=== PATIENT | female | born 1995 | race Caucasian/White ===

== ENCOUNTER 2017-08-28 16:58 | Outpatient (CLI) | payer OTHER | END 2017-08-28 18:08 | disposition home or self-care (01) | LOC: OBT 16:58 → L-D 17:00 → OBT 18:08 | DX: O36.8130 Decreased fetal movements, third trimester, not applicable or unspecified (principal); Z3A.38 38 weeks gestation of pregnancy | CPT/HCPCS: 76818 ==

== ENCOUNTER 2017-08-30 17:59 | Inpatient (IN) | payer OTHER ==
[~2017-08-30 17:59] MED LIST: DIPHENHYDRAMINE 50 MG INJ IV; KETOROLAC 30 MG INJ IV; NALOXONE (0.4 MG/ML) INJ IV; ONDANSETRON 4 MG INJ IV; ZOLPIDEM 5 MG TAB PO; morphine 2 MG INJ IV; morphine 4 MG/ML VIAL IV
[2017-08-30] MEDS ORDERED: LACTATED RINGER'S 1,000 ML IV (20:52)
[2017-08-30] MEDS ORDERED: CA GLUCONATE (GM) 10% 10ML INJ IV (21:00)
[2017-08-30] MEDS ORDERED: CARBOPROST 250 MCG INJ IM (21:00)
[2017-08-30] MEDS ORDERED: LIDOCAINE 1% (MPF) 30 ML INJ INJ (21:00)
[2017-08-30] MEDS ORDERED: OXYTOCIN 30 UNITS/LR 500 ML IV ×2 (21:00)
[2017-08-30] MEDS ORDERED: OXYCODONE/ASPIRIN (4.88/325) TAB PO (21:00)
[2017-08-30] MEDS ORDERED: METHYLERGONOVINE 0.2 MG INJ IM (21:00)
[2017-08-30] MEDS ORDERED: MISOPROSTOL 200 MCG TAB PR (21:00)
[2017-08-30] MEDS ORDERED: IBUPROFEN 600 MG TAB PO (21:00)
[2017-08-30] MEDS: LACTATED RINGER'S 1,000 ML IV (21:22)
[2017-08-30] MEDS: MAGNESIUM SULFATE 4 GM/100 ML 100 ML IV (21:31)
[2017-08-30 21:56] LABS: ADD MAN DIFF? NO
[2017-08-30 22:01] LABS: WHITE BLOOD COUNT 8.6 10^3/ul (4.8-10.8)
[2017-08-30 22:01] LABS: BASOPHILS % 0.2 % (0.0-2.0); EOSINOPHILS # 0.1 10^3/ul (0.0-0.5); EOSINOPHILS % 1.3 % (0.0-7.0); HEMATOCRIT 33.8 % (37.0-47.0); LYMPHOCYTES # 2.8 10^3/ul (0.8-2.9); LYMPHOCYTES % 32.6 % (15.0-51.0); MEAN CORPUSCULAR HEMOGLOBIN 27.2 pg (29.0-33.0); MEAN CORPUSCULAR HGB CONC 32.5 g/dl (32.0-37.0); MEAN CORPUSCULAR VOLUME 83.7 fl (82.0-101.0); MEAN PLATELET VOLUME 11.3 fl (7.4-10.4); MONOCYTE # 0.6 10^3/ul (0.3-0.9); NEUTROPHILS % 58.4 % (39.0-77.0); PLATELET COUNT 201 10^3/UL (140-415); RED BLOOD COUNT 4.04 10^6/ul (4.20-5.40); RED CELL DISTRIBUTION WIDTH 14.8 % (11.5-14.5)
[2017-08-30 22:08] LABS: ADD UMIC YES; UR AMORPHOUS CRYSTAL FEW /HPF (NONE SEEN); UR ASCORBIC ACID NEGATIVE (NEGATIVE); UR BACTERIA FEW /HPF (NONE SEEN); UR BILIRUBIN (Dip) NEGATIVE (NEGATIVE); UR BLOOD (Dip) 1+ mg/dL (NEGATIVE); UR CLARITY CLEAR (CLEAR); UR COLOR STRAW (YELLOW); UR GLUCOSE (Dip) NEGATIVE (NEGATIVE); UR KETONES (Dip) NEGATIVE (NEGATIVE); UR LEUKOCYTE ESTERASE (Dip) 3+ Leu/ul (NEGATIVE); UR NITRITE (Dip) NEGATIVE (NEGATIVE); UR RBC 10 /HPF (0-5); UR SPECIFIC GRAVITY (Dip) 1.005 (1.003-1.030); UR SQUAMOUS EPITHELIAL CELL FEW /HPF (FEW); UR TOTAL PROTEIN (Dip) NEGATIVE (NEGATIVE); UR UROBILINOGEN (Dip) NEGATIVE (NEGATIVE); UR WBC 29 /HPF (0-5)
[2017-08-30] MEDS: MAGNESIUM SULFATE 20 GM/500 ML 500 ML IV (22:09)
[2017-08-30] MEDS: ACETAMINOPHEN 500 MG TAB PO (22:10)
[2017-08-30 22:24] LABS: ALANINE AMINOTRANSFERASE 19 IU/L (13-69); ALBUMIN 3.5 g/dl (3.3-4.9); ALBUMIN/GLOBULIN RATIO 1.02; ALKALINE PHOSPHATASE 159 IU/L (42-121); ANION GAP 13 (8-16); ASPARTATE AMINO TRANSFERASE 18 IU/L (15-46); BLOOD UREA NITROGEN 11 mg/dl (7-20); CALCIUM 8.4 mg/dl (8.4-10.2); CARBON DIOXIDE 23 mmol/L (21-31); CHLORIDE 107 mmol/L (97-110); GLUCOSE 93 mg/dl (70-220); POTASSIUM 4.1 mmol/L (3.5-5.1); SODIUM 139 mmol/L (135-144); TOTAL PROTEIN 6.9 g/dl (6.1-8.1)
[2017-08-30 22:30] LABS: INR 0.92; PROTIME 12.4 Sec (11.9-14.9)
[2017-08-30 23:06] LABS: PARTIAL THROMBOPLASTIN TIME 26.7 Sec (25.0-35.0)
[2017-08-30] MEDS: AMPICILLIN 2 GM/NS (PMX) 100 ML IVPB (23:10)
[2017-08-31] MEDS ORDERED: LABETALOL HCL 20MG INJ (00:10)
[2017-08-31] MEDS: LABETALOL HCL 20MG INJ IV (00:15)
[2017-08-31] MEDS ORDERED: LABETALOL HCL 20MG INJ IV (00:30)
[2017-08-31] MEDS: BUTORPHANOL 2 MG INJ IV (03:04)
[2017-08-31] MEDS: AMPICILLIN 1 GM/NS (PMX) 50 ML IVPB ×5 (03:27→19:00)
[2017-08-31] MEDS: LACTATED RINGER'S 1,000 ML IV ×2 (06:36→10:59)
[2017-08-31] MEDS ORDERED: OXYTOCIN 30 UNITS/LR 500 ML BAG IV (07:00)
[2017-08-31] MEDS ORDERED: CHLOROPROCAINE 3% (MPF) 20 ML INJ (07:00)
[2017-08-31 07:16] LABS: MAGNESIUM 5.8 mg/dl (1.7-2.5)
[2017-08-31] MEDS: MAGNESIUM SULFATE 20 GM/500 ML 500 ML IV ×3 (07:29→22:50)
[2017-08-31] MEDS: DEXTROSE 5%-LR 1,000 ML IV (07:51)
[2017-08-31 08:04] LABS: URIC ACID 5.2 mg/dl (3.1-7.9)
[2017-08-31] MEDS: LABETALOL 200 MG TAB GTB (08:53)
[2017-08-31] MEDS: ACETAMINOPHEN 325 MG TAB PO (10:23)
[2017-08-31] MEDS ORDERED: FENTAnyl 2MCG/ML-ROPIV 0.2% 100 ML (10:43)
[2017-08-31] MEDS ORDERED: CEFAZOLIN 2 GM/50 ML (PMX) 50 ML IVPB (17:27)
[2017-08-31] MEDS: CEFAZOLIN 2 GM/50 ML (PMX) 50 ML IVPB (17:30)
[2017-08-31] MEDS ORDERED: PHENYLephrine (100 MCG/ML) 5ML SYG (17:41)
[2017-08-31] MEDS ORDERED: morphine SULFATE/PF (10 MG/10 ML) INJ (17:53)
[2017-08-31] MEDS ORDERED: FENTAnyl 50 MCG/ML VIAL IV ×2 (18:00)
[2017-08-31] MEDS ORDERED: ONDANSETRON 4 MG INJ IV ×2 (18:00)
[2017-08-31] MEDS ORDERED: DIPHENHYDRAMINE 50 MG INJ IV ×2 (18:00)
[2017-08-31] MEDS ORDERED: METOCLOPRAMIDE 10 MG INJ IV (18:00)
[2017-08-31] MEDS ORDERED: HYDROmorphONE 0.5 MG/0.5 ML SYG IV ×2 (18:00)
[2017-08-31] MEDS ORDERED: NALOXONE (0.4 MG/ML) INJ IV (18:00)
[2017-08-31] MEDS ORDERED: HYDROmorphONE (0.2 MG/ML) 10ML SYG IV (18:00)
[2017-08-31] MEDS ORDERED: ONDANSETRON 4 MG INJ (18:07)
[2017-08-31] MEDS ORDERED: VASOPRESSIN 20 UNITS INJ (18:09)
[2017-08-31] MEDS: KETOROLAC 30 MG INJ IV (19:02)
[2017-08-31] MEDS: OXYTOCIN 30 UNITS/LR 500 ML IV ×3 (19:03→22:38)
[2017-08-31] MEDS: LABETALOL 200 MG TAB PO (21:50)
[2017-08-31] MEDS: HYDROmorphONE (0.2 MG/ML) 10ML SYG IV (22:14)
[2017-08-31 22:22] LABS: RAPID PLASMA REAGIN NONREACTIVE (NR)
[2017-08-31] MEDS ORDERED: METHYLERGONOVINE 0.2 MG INJ IM (23:00)
[2017-08-31] MEDS ORDERED: MISOPROSTOL 200 MCG TAB PR (23:00)
[2017-08-31] MEDS ORDERED: OXYTOCIN 30 UNITS/LR 500 ML IV (23:00)
[2017-08-31] MEDS ORDERED: LANOLIN 7 GM TUBE TOP (23:00)
[2017-08-31] MEDS ORDERED: CARBOPROST 250 MCG INJ IM (23:00)
[2017-08-31] MEDS ORDERED: HYDROCODONE/APAP (5/325) TAB PO (23:00)
[2017-08-31] MEDS ORDERED: OXYCODONE/ACETAMINOPHEN (5/325) TAB PO (23:00)
[2017-09-01] MEDS: CEFAZOLIN 1 GM/50 ML (PMX) 50 ML IVPB (00:53)
[2017-09-01] MEDS: OXYTOCIN 30 UNITS/LR 500 ML IV ×6 (00:53→22:38)
[2017-09-01 01:52] LABS: MAGNESIUM 5.8 mg/dl (1.7-2.5)
[2017-09-01] MEDS ORDERED: AMPICILLIN 1 GM/NS (PMX) 50 ML IVPB (03:00)
[2017-09-01] MEDS: KETOROLAC 30 MG INJ IV ×2 (05:10→13:53)
[2017-09-01] MEDS: MAGNESIUM SULFATE 20 GM/500 ML 500 ML IV ×2 (05:26→16:03)
[2017-09-01 08:42] LABS: ADD MAN DIFF? NO
[2017-09-01 08:50] LABS: BASOPHILS % 0.3 % (0.0-2.0); EOSINOPHILS % 0.4 % (0.0-7.0); HEMATOCRIT 29.2 % (37.0-47.0); HEMOGLOBIN 9.5 g/dl (12.0-16.0); LYMPHOCYTES # 1.6 10^3/ul (0.8-2.9); MEAN CORPUSCULAR HEMOGLOBIN 27.3 pg (29.0-33.0); MEAN CORPUSCULAR HGB CONC 32.5 g/dl (32.0-37.0); MEAN CORPUSCULAR VOLUME 83.9 fl (82.0-101.0); MEAN PLATELET VOLUME 10.6 fl (7.4-10.4); MONOCYTE # 0.4 10^3/ul (0.3-0.9); MONOCYTES % 5.6 % (0.0-11.0); NEUTROPHIL # 5.5 10^3/ul (1.6-7.5); NEUTROPHILS % 72.3 % (39.0-77.0); PLATELET COUNT 148 10^3/UL (140-415); RED BLOOD COUNT 3.48 10^6/ul (4.20-5.40)
[2017-09-01 08:50] LABS: WHITE BLOOD COUNT 7.5 10^3/ul (4.8-10.8)
[2017-09-01] MEDS: LABETALOL 200 MG TAB PO ×2 (09:00→21:00)
[2017-09-01] MEDS: SENNA/DOCUSATE NA (8.6MG/50MG) TAB PO ×2 (09:10→21:20)
[2017-09-01 09:21] LABS: MAGNESIUM 6.2 mg/dl (1.7-2.5)
[2017-09-01] MEDS: LACTATED RINGER'S 1,000 ML IV (12:52)
[2017-09-01 13:27] LABS: MAGNESIUM 5.9 mg/dl (1.7-2.5)
[2017-09-01] MEDS: IBUPROFEN 600 MG TAB PO ×2 (17:30→23:29)
[2017-09-01] MEDS: HYDROCODONE/APAP (5/325) TAB PO (21:23)
[2017-09-02] MEDS: HYDROCODONE/APAP (5/325) TAB PO ×3 (01:03→20:04)
[2017-09-02] MEDS: LACTATED RINGER'S 1,000 ML IV (02:12)
[2017-09-02] MEDS: OXYTOCIN 30 UNITS/LR 500 ML IV ×2 (02:38→06:38)
[2017-09-02] MEDS: IBUPROFEN 600 MG TAB PO ×3 (05:34→17:44)
[2017-09-02] MEDS: LABETALOL 200 MG TAB PO ×2 (09:00→21:00)
[2017-09-02] MEDS: SENNA/DOCUSATE NA (8.6MG/50MG) TAB PO ×2 (10:02→21:08)
[2017-09-02] MEDS: NA PHOSPHATE/BIPHOS 133 ML ENEMA PR (16:25)
[2017-09-03] MEDS: IBUPROFEN 600 MG TAB PO ×3 (00:04→11:39)
[2017-09-03] MEDS: HYDROCODONE/APAP (5/325) TAB PO ×3 (01:18→14:52)
[2017-09-03] MEDS: LABETALOL 200 MG TAB PO (08:24)
[2017-09-03] MEDS: SENNA/DOCUSATE NA (8.6MG/50MG) TAB PO (08:35)
[2017-09-03] MEDS: DIPHTH/TET/ACEL PERTUSS (ADULT) 0.5 ML VIAL IM* (09:00)
[2017-09-03] MEDS: OXYCODONE/ACETAMINOPHEN (5/325) TAB PO (10:07)
== END 2017-09-03 16:45 | disposition home or self-care (01) | DRG 766 ==
LOC: OBT 17:59 → L-D 18:00 → PP1 08-31 22:27 → OBT 21:30 → L-D 21:30
PROC: 3E033VJ Introduction of Other Hormone into Peripheral Vein, Percutaneous Approach (ICD-10-PCS; 2017-08-30)
PROC: 10D00Z1 Extraction of Products of Conception, Low, Open Approach (ICD-10-PCS; principal; 2017-08-31)
PROC: 0UB70ZZ Excision of Bilateral Fallopian Tubes, Open Approach (ICD-10-PCS; 2017-08-31)
DX: O14.14 Severe pre-eclampsia complicating childbirth (principal); O76 Abnormality in fetal heart rate and rhythm complicating labor and delivery; Z30.2 Encounter for sterilization; Z37.0 Single live birth; Z3A.38 38 weeks gestation of pregnancy
CPT/HCPCS: 62319; 76818; 80053; 81001; 83735; 84560; 85025; 85384; 85610; 85730; 86592; 86900; 86901; 88302; 90715; 94760; 99464; J2400